=== PATIENT | female | born 1935 | race Caucasian/White ===

== ENCOUNTER 2017-04-05 14:21 | Emergency (ER) | payer MEDICARE, OTHER ==
[~2017-04-05] VITALS: Ht 157.5 cm; Wt 61.7 kg
[~2017-04-05 14:21] MED LIST: CHOL200012 PO; DIGO125T PO; DILT120C11 PO; FLUO20CA19 PO; HYDR-3240 PO; HYDR50CA2 PO; LAMO100T PO; METH500T97 PO; MIRT45TA4 PO; OCULAR LUBRICANT EACHEYE; TRAV5DRO EACHEYE; VIT1CAPS42 PO; [UNRECOGNIZED DRUG - CODE] PO
[2017-04-05] MEDS ORDERED: FLUO40CA2 PO (15:11)
[2017-04-05] MEDS ORDERED: TIZA4TAB PO (15:11)
[2017-04-05] MEDS ORDERED: QUET25TA5 PO (15:11)
[2017-04-05] MEDS ORDERED: SODIUM CHLORIDE FLUSH 10ML SYR IVF ONE (15:30)
[2017-04-05] MEDS ORDERED: MECLIZINE CHEWABLE 25 MG TAB PO ONE (15:30)
[2017-04-05] MEDS ORDERED: CARBAMIDE PEROXIDE EAR DROPS 6.5%, 15ML RIGHT EAR ONE (15:30)
[2017-04-05] MEDS ORDERED: SODIUM CHLORIDE 0.9% 1,000ML IVBOLUS ONE (15:30)
[2017-04-05] MEDS ORDERED: CARBAMIDE PEROXIDE EAR DROPS 6.5%, 15ML ONE (15:33)
[2017-04-05] MEDS ORDERED: MECLIZINE CHEWABLE 25 MG TAB ONE (15:33)
[2017-04-05 15:42] LABS: BLOOD UREA NITROGEN 14 mg/dL (7-18); IS PT STATUS REG ER OR PRE ER? YES
[2017-04-05 18:25] VITALS: BP 165/58
== END 2017-04-05 18:27 | disposition home or self-care (01) ==
LOC: ED 18:21
DX: H60.91 Unspecified otitis externa, right ear (principal); H61.21 Impacted cerumen, right ear; I10 Essential (primary) hypertension
CPT/HCPCS: 36415; 70450; 71010; 80048; 82040; 84484; 85025; 93005; 96360; 99285; J7030

== ENCOUNTER 2017-07-21 16:53 | Observation (INO) | payer MEDICARE, OTHER ==
[~2017-07-21] VITALS: Ht 160 cm; Wt 59.3 kg
[~2017-07-21 16:53] MED LIST changes: -CHOL200012 PO; +CHOL200074 PO; +FLUO40CA2 PO; +QUET25TA5 PO; +TIZA4TAB PO
[2017-07-21] MEDS ORDERED: SODIUM CHLORIDE FLUSH 10ML SYR IVF ONE (17:30)
[2017-07-21 17:54] LABS: HEMATOCRIT 46.8 % (34.6-47.8); HEMOGLOBIN 15.5 g/dL (11.7-16.4); WHITE BLOOD COUNT 12.7 x10^3/uL (3.4-10)
[2017-07-21] MEDS ORDERED: VIT1CAPS42 PO (17:56)
[2017-07-21] MEDS ORDERED: PARO20TA98 PO (17:56)
[2017-07-21] MEDS ORDERED: ASPIRIN 325 MG TABLET PO ONE (18:00)
[2017-07-21] MEDS ORDERED: ASPIRIN 81 MG TABLET CHEW PO ONE (18:00)
[2017-07-21 18:01] LABS: ASPARTATE AMINO TRANSFERASE 10 U/L (15-37); BLOOD UREA NITROGEN 28 mg/dL (7-18)
[2017-07-21 18:11] LABS: IS PT STATUS REG ER OR PRE ER? YES
[2017-07-21] MEDS ORDERED: ASPIRIN 325 MG TABLET ONE (18:52)
[2017-07-21] MEDS ORDERED: ENALAPRILAT 1.25 MG/ML, 2ML IV PRN (23:30)
[2017-07-21] MEDS ORDERED: NITROGLYCERIN 0.4 MG/SPRAY SL PRN (23:30)
[2017-07-21] MEDS ORDERED: LABETALOL 5MG/ML, 20ML IVPush PRN (23:30)
[2017-07-21] MEDS ORDERED: HYDROcodone/APAP 5/325 TABLET PO PRN (23:30)
[2017-07-21] MEDS ORDERED: ACETAMINOPHEN 325 MG TABLET PO PRN (23:30)
[2017-07-22] MEDS ORDERED: CLORAZEPATE 7.5 MG TABLET PO PRN
[2017-07-22 00:08] LABS: IS PT STATUS REG ER OR PRE ER? YES
[2017-07-22] MEDS ORDERED: HEPARIN 5,000 UNITS/ML, 1ML ONE (06:24)
[2017-07-22] MEDS: HEPARIN 5,000 UNITS/ML, 1ML SQ SCH ×2 (06:31→14:42)
[2017-07-22] MEDS ORDERED: DILTIAZEM 120 MG CAP.ER.12H PO SCH (09:00)
[2017-07-22] MEDS ORDERED: SENNA/DOCUSATE TABLET PO SCH (09:00)
[2017-07-22] MEDS ORDERED: DIGOXIN 0.125 MG TABLET PO SCH (09:00)
[2017-07-22] MEDS ORDERED: QUETIAPINE 25MG TABLET PO SCH (09:00)
[2017-07-22 11:48] VITALS: BP 146/55
[2017-07-22 15:05] VITALS: BP 128/82
[2017-07-22 19:02] VITALS: BP 148/88
[2017-07-22] MEDS ORDERED: PAROXETINE 20 MG TABLET PO SCH (21:00)
[2017-07-23] MEDS ORDERED: DILTIAZEM 120 MG CAP.ER.24H PO SCH (09:00)
== END 2017-07-22 20:58 | disposition home or self-care (01) ==
LOC: ED 17:46 → EDIP 19:00 → INTOOBSV 19:00 → 5SO 07-22 11:28 → DCLOUNGE 07-22 15:10 → EDIP 07-22 15:28 → 5SO 07-22 15:31
PROVIDERS: ADMIT Family Medicine; ATTEND Family Medicine
DX: R07.2 Precordial pain (principal); H40.9 Unspecified glaucoma; I10 Essential (primary) hypertension; F32.9 Major depressive disorder, single episode, unspecified; G89.29 Other chronic pain; H35.30 Unspecified macular degeneration; G47.00 Insomnia, unspecified; Z82.3 Family history of stroke; Z82.49 Family history of ischemic heart disease and other diseases of the circulatory system
CPT/HCPCS: 36415; 71010; 78452; 80053; 80061; 83880; 84484; 85025; 93005; 93017; 96372; 99285; A9502; C9898; G0378; J1644

== ENCOUNTER 2019-01-27 13:43 | Emergency (ER) | payer MEDICARE, OTHER ==
[~2019-01-27] VITALS: Ht 160 cm; Wt 57.3 kg
[~2019-01-27 13:43] MED LIST changes: -MIRT45TA4 PO; +MIRT45TA61 PO; +PARO20TA98 PO
[2019-01-27 14:21] LABS: BASOPHILS # (AUTO) 0.01 x10^3/uL (0-0.1); BASOPHILS % (AUTO) 0 % (0-1); EOSINOPHILS % (AUTO) 0 % (1-7); LYMPHOCYTES # (AUTO) 0.96 x10^3/uL (1-3.4); LYMPHOCYTES % (AUTO) 6 % (22-44); MD NO; MEAN CORPUSCULAR HEMOGLOBIN 30.6 pg (27.0-34.8); MEAN CORPUSCULAR HGB CONC 32.3 g/dL (32.4-35.8); MEAN CORPUSCULAR VOLUME 94.8 fL (80-100); MEAN PLATELET VOLUME 9.6 fL (7.4-10.4); MONOCYTES % (AUTO) 5 % (2-9); NEUTROPHILS # (AUTO) 13.18 x10^3/uL (1.8-6.8); NEUTROPHILS % (AUTO) 88 % (42-75); PLATELET COUNT 171 x10^3/uL (130-400); RED CELL DISTRIBUTION WIDTH 15.9 % (9.6-15.2)
[2019-01-27 14:30] LABS: ALBUMIN 4.1 g/dL (3.4-5.0); ANION GAP 7 mmol/L (5-15); CALCIUM 9.6 mg/dL (8.5-10.1); CHLORIDE 106 mmol/L (98-107); CREATININE 1.08 mg/dL (0.55-1.02)
[2019-01-27 14:31] LABS: INTERNATIONAL NORMALIZED RATIO 1.02 (0.93-1.1); PROTHROMBIN TIME 10.7 Seconds (9.6-11.5)
[2019-01-27 14:34] LABS: TROPONIN I < 0.015 ng/mL (0.000-0.045)
--- NOTE | 2019-01-27 16:34 | NUR ---
Pt ambulates with steady gait and balance using personal walker from lobby to ED room. Pt provided gown to change into. NADN. No obvious defecits observed.
[2019-01-27 17:22] VITALS: BP 156/72
--- NOTE | 2019-01-27 17:23 | NUR ---
Patient given discharge instructions and they have confirmed that they understand the instructions. Patient ambulatory with steady gait and balance using personal walker. NADN. Pt left with d/c paperwork and all personal belongings.
== END 2019-01-27 17:26 | disposition home or self-care (01) ==
LOC: ED 17:05
DX: R60.0 Localized edema (principal); R07.9 Chest pain, unspecified; I10 Essential (primary) hypertension; F32.9 Major depressive disorder, single episode, unspecified
CPT/HCPCS: 36415; 71045; 80048; 82040; 83880; 84484; 85025; 85610; 85730; 93005; 93970; 99284

== ENCOUNTER → 2019-03-04 | Outpatient (CLI) | payer MEDICARE, OTHER | END | disposition home or self-care (01) | LOC: CVU 13:59 | PROVIDERS: ATTEND Physician Assistant | DX: I08.3 Combined rheumatic disorders of mitral, aortic and tricuspid valves (principal); I10 Essential (primary) hypertension; E78.5 Hyperlipidemia, unspecified | CPT/HCPCS: 93306 ==

== ENCOUNTER 2021-02-22 14:15 | Emergency (ER) | payer MEDICARE, OTHER ==
[~2021-02-22] VITALS: Ht 160 cm; Wt 46.1 kg
[~2021-02-22 14:15] MED LIST changes: -DIGO125T PO; +DIGO125T85 PO; +HYDR-2214 PO; -HYDR-3240 PO; -LAMO100T PO; +LAMO100T8 PO; -TIZA4TAB PO; +TIZA4TAB2 PO
[2021-02-22 15:26] LABS: ALBUMIN 4.4 g/dL (3.4-5.0); ANION GAP 8 mmol/L (5-15); CHLORIDE 103 mmol/L (98-107); CREATININE 0.82 mg/dL (0.55-1.02)
[2021-02-22 15:28] LABS: BASOPHILS % (AUTO) 1 % (0-1); EOSINOPHILS % (AUTO) 1 % (1-7); LYMPHOCYTES % (AUTO) 17 % (22-44); MEAN CORPUSCULAR HEMOGLOBIN 31.4 pg (27.0-34.8); MEAN CORPUSCULAR HGB CONC 33.2 g/dL (32.4-35.8); MONOCYTES % (AUTO) 8 % (2-9); NEUTROPHILS % (AUTO) 74 % (42-75); PLATELET COUNT 148 x10^3/uL (130-400); RED BLOOD COUNT 4.81 x10^6/uL (3.82-5.3); RED CELL DISTRIBUTION WIDTH 15.2 % (9.6-15.2)
[2021-02-22 15:30] LABS: TROPONIN I < 0.015 ng/mL (0.000-0.045)
[2021-02-22] MEDS ORDERED: SODIUM CHLORIDE 0.9%, 500ML IVBOLUS ONE (16:00)
[2021-02-22] MEDS ORDERED: ONDANSETRON 2MG/ML, 2ML ONE (16:30)
[2021-02-22 16:34] LABS: MICROSCOPIC NOT IND
[2021-02-22 17:00] VITALS: BP 154/84
--- NOTE | 2021-02-22 17:00 | NUR ---
BREAK RN: MEDICATED FOR NAUSEA AND IV BOLUS STARTED NOTED ON NOV. VS UPDATED. FAMILY AT BEDSIDE. PT IN NO DISTRESS AT THIS TIME.
[2021-02-22] MEDS ORDERED: ONDANSETRON 2MG/ML, 2ML IVPush ONE (17:30)
[2021-02-23] MEDS ORDERED: GABA600T7 PO (18:25)
[2021-02-23] MEDS ORDERED: APIX5TAB PO (18:25)
[2021-02-23] MEDS ORDERED: ATOR-2 PO (18:25)
[2021-02-23] MEDS ORDERED: DILT240C61 PO (18:25)
[2021-02-23] MEDS ORDERED: TRINTELLIX PO (18:25)
== END 2021-02-22 18:04 | disposition home or self-care (01) ==
LOC: ED 17:05
DX: R11.2 Nausea with vomiting, unspecified (principal); F11.23 Opioid dependence with withdrawal; R07.9 Chest pain, unspecified; R94.31 Abnormal electrocardiogram [ECG] [EKG]; I10 Essential (primary) hypertension; I48.91 Unspecified atrial fibrillation
CPT/HCPCS: 36415; 71045; 80048; 80162; 81003; 82040; 84484; 85025; 93005; 96361; 96374; 99285; J2405; J7040

== ENCOUNTER 2021-02-23 15:52 | Observation (INO) | payer MEDICARE, OTHER ==
[~2021-02-23] VITALS: Ht 160 cm; Wt 50.6 kg
--- NOTE | 2021-02-23 16:02 | NUR ---
BREAK RN: THIS IS A 85 YEAR OLD FEMALE WHO WAS BIB AMBULANCE DUE TO ANXIETY AND HEART PALPITATION. PT WAS SEEN YESTERDAY FOR THE SAME. PT MD TOOK HER OFF MEDICATIONS A COUPLE OF DAYS AGO. PT STATES SHE HAD A HORRIBLE NIGHT SLEEP WITH NIGHT SWEATS. 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 EKG COMPLETED, REPORT TO HAIM SHAIKH, PLAN OF CARE DISCUSSED
--- NOTE | 2021-02-23 16:22 | NUR ---
RECEIVED REPORT FROM NEEL DUMONT. PT RESTING ON GURMYRA. EDIL. VSS. ERP DR. BRUNO AT BEDSIDE FOR EVAL.
[2021-02-23] MEDS ORDERED: SODIUM CHLORIDE 0.9% 1,000ML IVBOLUS ONE (16:30)
[2021-02-23 16:57] LABS: BASOPHILS % (AUTO) 0 % (0-1); EOSINOPHILS % (AUTO) 1 % (1-7); LYMPHOCYTES % (AUTO) 21 % (22-44); MEAN CORPUSCULAR HGB CONC 33.2 g/dL (32.4-35.8); MEAN PLATELET VOLUME 9.4 fL (7.4-10.4); MONOCYTES % (AUTO) 10 % (2-9); NEUTROPHILS % (AUTO) 68 % (42-75); PLATELET COUNT 128 x10^3/uL (130-400); RED BLOOD COUNT 4.18 x10^6/uL (3.82-5.3)
[2021-02-23 17:06] LABS: ALANINE AMINOTRANSFERASE 23 U/L (12-78); ALBUMIN 3.7 g/dL (3.4-5.0); ANION GAP 5 mmol/L (5-15); CALCIUM 9.2 mg/dL (8.5-10.1); CHLORIDE 103 mmol/L (98-107); CREATININE 0.67 mg/dL (0.55-1.02)
[2021-02-23 17:11] LABS: ALKALINE PHOSPHATASE 82 U/L (45-117); BILIRUBIN,TOTAL 1.1 mg/dL (0.2-1.0); TOTAL PROTEIN 7.1 g/dL (6.4-8.2); TROPONIN I < 0.015 ng/mL (0.000-0.045)
--- NOTE | 2021-02-23 17:17 | NUR ---
PT CHART REVIEWED AND PLACED FOR RECHECK.
--- NOTE | 2021-02-23 17:17 | NUR ---
PT RESTING ON GURNEY. NADN. COR[place].
[2021-02-23] MEDS ORDERED: ONDANSETRON 2MG/ML, 2ML IVPush ONE (17:30)
[2021-02-23] MEDS ORDERED: ONDANSETRON 2MG/ML, 2ML ONE (17:47)
--- NOTE | 2021-02-23 18:18 | NUR ---
ERP DR. BRUNO AT BEDSIDE FOR RE-EVAL.
[2021-02-23] MEDS ORDERED: DILT240C61 PO (18:25)
[2021-02-23] MEDS ORDERED: GABA600T7 PO (18:25)
[2021-02-23] MEDS ORDERED: TRINTELLIX PO (18:25)
[2021-02-23] MEDS ORDERED: ATOR-2 PO (18:25)
[2021-02-23] MEDS ORDERED: APIX5TAB PO (18:25)
--- NOTE | 2021-02-23 19:04 | NUR ---
PT REPOSITIONED FOR COMFORT AND PROVIDED W/ DINNER TRAY.
--- NOTE | 2021-02-23 19:56 | NUR ---
REPORT GIVEN TO HÉCTOR PINTO RN. ALL QUESTIONS ANSWERED. AWAITING PT TRANSPORT.
[2021-02-23] MEDS ORDERED: BISACODYL 10 MG SUPP PR PRN (21:30)
[2021-02-23] MEDS ORDERED: LABETALOL 5MG/ML, 20ML IVPush PRN (21:30)
[2021-02-23] MEDS ORDERED: HYDROcodone/APAP 5/325 TABLET PO PRN (21:30)
[2021-02-23] MEDS ORDERED: POLYETHYLENE GLYCOL 17 GM PACKET PO PRN (21:30)
[2021-02-23] MEDS ORDERED: ONDANSETRON 2MG/ML, 2ML IVPush PRN (21:30)
[2021-02-23] MEDS ORDERED: ACETAMINOPHEN 325 MG TABLET PO PRN (21:30)
[2021-02-23 22:05] VITALS: BP 143/81
[2021-02-23] MEDS: MELATONIN 5 MG TABLET PO PRN (22:32)
[2021-02-23] MEDS: APIXABAN 5 MG TABLET PO SCH (22:32)
[2021-02-23] MEDS: ATORVASTATIN 80 MG TABLET PO SCH (22:32)
[2021-02-23] MEDS: QUETIAPINE 25MG TABLET PO SCH (23:21)
[2021-02-24] MEDS: TRINTELLIX 10 MG PO SCH ×2 (02:00→20:43)
[2021-02-24 02:09] VITALS: BP 140/74
[2021-02-24 05:30] VITALS: BP 125/77
[2021-02-24] MEDS: CARVEDILOL 6.25 MG TABLET PO SCH ×2 (05:34→17:47)
[2021-02-24 06:41] VITALS: BP 115/63
[2021-02-24] MEDS: DIGOXIN 0.125 MG TABLET PO SCH (08:26)
[2021-02-24] MEDS: APIXABAN 5 MG TABLET PO SCH ×2 (08:26→20:42)
[2021-02-24] MEDS: DILTIAZEM 240 MG CAP.ER.24H PO SCH (08:26)
[2021-02-24 13:24] VITALS: BP 118/64
[2021-02-24 19:14] VITALS: BP 112/66
[2021-02-24] MEDS: ATORVASTATIN 80 MG TABLET PO SCH (20:40)
[2021-02-24] MEDS: QUETIAPINE 25MG TABLET PO SCH (20:42)
[2021-02-24] MEDS: MELATONIN 5 MG TABLET PO PRN (21:59)
[2021-02-25 00:17] VITALS: BP 111/57
[2021-02-25] MEDS: CARVEDILOL 6.25 MG TABLET PO SCH (05:42)
[2021-02-25 06:56] VITALS: BP 98/50
[2021-02-25] MEDS: APIXABAN 5 MG TABLET PO SCH (08:20)
[2021-02-25] MEDS: DIGOXIN 0.125 MG TABLET PO SCH (08:20)
[2021-02-25] MEDS: DILTIAZEM 240 MG CAP.ER.24H PO SCH (08:20)
[2021-02-25] MEDS ORDERED: MEGESTROL ORAL.SUSP 40 MG/ML PO SCH (09:00)
[2021-02-25] MEDS ORDERED: CARV6.2512 PO (12:38)
[2021-02-25] MEDS ORDERED: TRAM50TA2 PO (12:38)
[2021-02-25 13:39] VITALS: BP 102/54
== END 2021-02-25 15:10 | disposition home or self-care (01) ==
LOC: ED 16:53 → EDIP 18:59 → INTOOBSV 18:59 → 3N 20:12
PROVIDERS: ADMIT Emergency Medicine; ATTEND Family Medicine
DX: F11.23 Opioid dependence with withdrawal (principal); I48.91 Unspecified atrial fibrillation; D68.69 Other thrombophilia; E78.5 Hyperlipidemia, unspecified; I10 Essential (primary) hypertension; J96.10 Chronic respiratory failure, unspecified whether with hypoxia or hypercapnia; G89.29 Other chronic pain; M54.9 Dorsalgia, unspecified; G47.00 Insomnia, unspecified; K59.09 Other constipation; G47.33 Obstructive sleep apnea (adult) (pediatric); H81.10 Benign paroxysmal vertigo, unspecified ear; H40.9 Unspecified glaucoma; H35.30 Unspecified macular degeneration; R40.0 Somnolence; R63.4 Abnormal weight loss; F51.04 Psychophysiologic insomnia; G47.10 Hypersomnia, unspecified; M41.9 Scoliosis, unspecified; F41.8 Other specified anxiety disorders; Z79.01 Long term (current) use of anticoagulants; Z99.81 Dependence on supplemental oxygen; Z86.73 Personal history of transient ischemic attack (TIA), and cerebral infarction without residual deficits; Z79.899 Other long term (current) drug therapy
CPT/HCPCS: 36415; 72110; 80053; 80162; 83690; 83880; 84443; 84484; 85025; 93005; 96361; 96374; 96376; 97161; 99285; G0378; J2405; J7030